=== PATIENT | female | born 2000 | race Caucasian/White ===

== ENCOUNTER 2023-12-30 23:08 | Emergency (ER) | payer SELFPAY ==
[~2023-12-30] VITALS: Ht 165.1 cm; Wt 50.0 kg
[2023-12-30 23:23] VITALS: BP 138/78; PULSE 84; RESP 18; TEMP 98.4; O2SAT 99
== END 2023-12-31 04:36 | disposition home or self-care (01) ==
LOC: ER 23:08
DX: Z04.89 Encounter for examination and observation for other specified reasons (principal); F41.9 Anxiety disorder, unspecified; F32.A Depression, unspecified
CPT/HCPCS: 99283